=== PATIENT | male | born 1990 | race Caucasian/White ===

== ENCOUNTER 2020-08-18 11:18 | Inpatient (IN) | payer SELFPAY ==
--- NOTE | 2020-08-18 12:33 | PDOC.FPRHP ---
- History of Present Illness Chief Complaint: worsening finger pain History of Present Illness: Mr. Barton is a 30 yo M who is a transfer from [place] and a direct admit for failed outpatient therapy of cellulitis of his right 3rd digit. Has been on Bactrim & Keflex for two days but due to worsening of pain came back. Originally noticed this Sunday. Denies initial wound or trauma. Denies fevers, chills, reports drianage. Reports compliance with meds. Upt ot date on tetanus shot. XR shows no signs of osseous involvement in the ER. Patient endorses pain and limited finger movement. No medical hx. Hasn't happened before. ER: Was given 2 g rocephin, 1 g vanc, morphine, Zofran - Allergies/Adverse Reactions Allergies Allergy/AdvReac Type Severity Reaction Status Date / Time codeine Allergy Hives Verified 08/18/20 12:36 - History PMHx: None PSHx: oral surgery for misaligned teeth FHx:n/c Social: Social drinking, 2 cigs/day for 15 yrs, no drug use. 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 denies: jaundice, itching Musculoskeletal: reports: pain, tenderness, stiffness, swelling, arthritis/arthralgias Psychological: denies: anxiety, depression - Vital signs BP: [144.93] HR: [88] RR: [20] Tmax: [98.1F] Pox: [99%]% on [RA] Wt: 98kg - Physical Exam Constitutional: NAD, awake, alert and oriented, well developed HEENT: normocephalic and atraumatic, PERRLA, EOMI, conjunctiva clear Neck: supple, FROM, trachea midline Heart: RRR, normal S1/S2, no murmurs/rubs/gallops Lungs: CTAB, no respiratory distress, good air movement, no wheezing, no retractions Abdomen: soft, non-tender, bowel sounds present Musculoskeletal: other (right third digit with swelling & erythema most prominent at MCP with extension into doral hand. Purulence from small opening. Difficult to appreciate abscess, limited movement due to pain & swelling) Neurological: no focal deficit, CN II-XII intact, normal sensation Skin: capillary refill <2 seconds Heme/Lymphatic: no purpura, no petechia Psychiatric: normal mood and affect, good judgment and insight, intact recent and remote memory FMR H&P: Results - Labs Result Diagrams: 08/18/20 15:38 FMR H&P: A/P - Plan #Cellulitis of right 3rd digit, failed outpatient therapy -Continue vanc & rocephin, pending blood & wound cultures -Wound care on board -XR with no signs of osseous involvement, sepsis criteria not met. Cannot definitely r/o osteo- CRP 5 and difficult to appreciated abscess with limited finger movement. Will obtain MRI to further assess -Morphine& toradol for pain -Admit to onc/inpt Discussed w/ Dr. Esquivel Lines: Peripheral IV 18G Abx: Vanc & Rocephin Dvt ppx: SCDs GI ppx: Not indicated FMR H&P: Upper Level - Plan Date/Time: 08/18/20 1232 I, [], have evaluated this patient and agree with findings/plan as outlined by campus recruiting internship resident. Pertinent changes/additions are listed here. Addendum - Attending - Attending Attestation Date/Time: 08/18/20 8089 I personally evaluated the patient and discussed the management with Dr. Porter I agree with the History, Examination, Assessment and Plan documented above with any addition or exceptions noted below - 30 yo M with no significant PMH presented as transfer from [facility] as a direct admit for failed outpatient therapy of cellulitis of his right 3rd digit. Patient reports initial redness and swelling of left third finger on Sunday. Was seen in ER on 08/16 and given Rocephin and prescriptions for Bactrim and Keflex. Reports he has been taking the abx as prescribed but has had increased pain and swelling in finger. PMH/PSH/Meds/SH reviewed and agree with resident's documentation. Afebrile VSS. Exam repeated by me and agree with resident's findings. Labs normal except CRP=5.57. A/P: 1) Cellulitis of right 3rd finger failed outpatient treatment- admit to medical and start IV abx. MRI obtained to evaluate for possible osteomyelitis and showed abscess and possible early tenosynovitis versus reactive inflammation. Ortho consulted and will evaluate patient.
[2020-08-18 12:39] VITALS: BMI 27.2
[2020-08-18] MEDS ORDERED: Vancomycin HCl 500 MG in Sodium Chloride 0.9% 100 ML IVPB SCH (13:15)
[2020-08-18] MEDS ORDERED: Morphine 4 MG/ML VIAL SLOW IVP SCH (13:45)
[2020-08-18] MEDS ORDERED: Magnevist 469MG/ML 20 ML VIAL ONE (13:48)
--- NOTE | 2020-08-18 15:00 | MRI ---
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 There is also loculated abscess extending into the interspace surrounding the third digit between the index and ring fingers, best seen on image 15 of series 6. The collection measures approximately 8.4 x 4.0 x 1.3 cm in its greatest length, with an AP dimension. There is a small 8 mm substance abscess overlying the left ring finger metacarpal head (along the dorsal aspect). There is a small am ount of fluid seen within the flexor tendon sheaths of the FDS and FDP tendons of the index and long finger at that is best seen at the level of the MCP joints and extends to the level of the mid c arpal joints. This may be reactive in nature and does not appear to involve the level of the distal wrist. There is no abnormal bone marrow signal intensity to suggest osteomyelitis. No joint effusion is grossly evident to suggest a septic arthritis. IMPRESSION: 1. Right hand and right long finger cellulitis with subcutaneous abscess involving the dorsal aspect of the right long finger extending into the distal aspect of the right hand and with in the index-long finger interspace and the long finger-ring finger interspace. Small subcutaneous abscess a lso overlies the dorsal aspect of the left ring finger MCP joint. 2. Small amount of tenosynovitis involving FDP and FDS tendons of the index and long finger, near the MCP joints. This could be reactive in nature; however, a new infectious tenosynovitis is not excluded. Recommend correlation with the clinical exam.
[2020-08-18 16:05] LABS: Calc. Creatinine Clearance 202 mL/min (70-130); Estimated GFR-MDRD Greater than 90
[2020-08-18] MEDS: Ketorolac Tromethamine 30 MG/ML VIAL IVP SCH (17:07)
[2020-08-18] MEDS: Morphine 4 MG/ML VIAL SLOW IVP PRN ×2 (18:27→22:23)
[2020-08-18] MEDS: Vancomycin 1.5 GRAM/300 ML BAG 1.5 GM in Premix Bag 1 BAG IVPB SCH (19:49)
[2020-08-18] MEDS ORDERED: Vancomycin HCl 1.5 GM in Sodium Chloride 0.9% 250 ML 300 ML IVPB SCH (23:00)
[2020-08-19] MEDS: Ketorolac Tromethamine 30 MG/ML VIAL IVP SCH ×6 (00:22→23:18)
[2020-08-19] MEDS: Morphine 4 MG/ML VIAL SLOW IVP PRN ×2 (03:52→10:42)
[2020-08-19] MEDS: Vancomycin 1.5 GRAM/300 ML BAG 1.5 GM in Premix Bag 1 BAG IVPB SCH ×4 (03:52→21:53)
[2020-08-19 04:03] LABS: #Eosinphils 0.2 thou/uL (0.0-0.7); #Lymphocytes 1.5 thou/uL (1.20-3.40); %Basophils 0.3 % (0.0-1.0); %Eosinophils 1.4 % (0.0-10.0); %Lymphocytes 12.6 % (21.0-51.0); %Monocytes 8.5 % (0.0-10.0); %Neutrophils 77.2 % (42.0-75.0); Hemoglobin 14.8 g/dL (14.0-18.0); Mean Corpuscular Hemoglobin 32.4 pg (27.0-31.0); Mean Corpuscular Volume 95.2 fL (78.0-98.0); Mean Platelet Volume 7.9 fL (7.4-10.4); Platelet Count 191 thou/uL (130-400); Red Blood Cell (RBC) Count 4.56 mill/uL (4.70-6.10); White Blood Cell (WBC) Count 11.7 thou/uL (4.8-10.8)
[2020-08-19 04:21] LABS: Anion Gap 12 mmol/L (10-20); BUN (Urea Nitrogen) 17 mg/dL (8.9-20.6); Calc. Creatinine Clearance 187 mL/min (70-130); Calcium 9.2 mg/dL (7.8-10.44); Carbon Dioxide 25 mmol/L (22-29); Chloride 102 mmol/L (98-107); Estimated GFR-MDRD Greater than 90; Glucose 101 mg/dL (70-105); Sodium 135 mmol/L (136-145)
[2020-08-19] MEDS ORDERED: CEFAZOLIN 2 GM in Premix Bag 1 BAG IVPB SCH (07:15)
--- NOTE | 2020-08-19 07:47 | PDOC.FM ---
- Subjective Subjective: Patient reports persistent hand pain and swelling. Otherwise no acute concerns. denies fevers/chills. - Objective MAR Reviewed: Yes Vital Signs & Weight: Vital Signs (12 hours) Temp Pulse Resp BP BP Pulse Ox 08/19/20 04:00 98.6 F 72 12 135/67 99 08/18/20 19:59 99.1 F 109 H 16 128/60 97 Weight Weight 98.928 kg I&O: 08/18/20 08/19/20 08/20/20 06:59 06:59 06:59 Intake Total 1640 Balance 1640 Result Diagrams: 08/19/20 03:43 08/19/20 03:43 Phys Exam - Physical Examination Constitutional: NAD Respiratory: no wheezing, no rales, no rhonchi Cardiovascular: RRR, no significant murmur, no rub Gastrointestinal: soft, non-tender, no distention, positive bowel sounds R 3rd finger edematour and erythematous to marked edges, TTP ROM decreased 2/2 pain Dx/Plan - Plan Plan: #Cellulitis of right 3rd digit, failed outpatient therapy -Continue vanc & rocephin, pending blood & wound cultures -Wound care on board - MRI shows abscess and concern for tenosynovitis vs reactive inflammation -Morphine & toradol for pain - Ortho consulted, likely OR this PM Lines: Peripheral IV 18G Abx: Vanc & Rocephin Dvt ppx: SCDs GI ppx: Not indicated Addendum - Attending - Attending Attestation Date/Time: 08/19/20 7875 I personally evaluated the patient and discussed the management with Dr. Jordan I agree with the History, Examination, Assessment and Plan documented above with any addition or exceptions noted below - Patient reports that pain still present. Afebrile VSS A/P: 1) Right 3rd finger cellulitis - Appreciate ortho assistance ; plan for I&D today. Continue current abx.
--- NOTE | 2020-08-19 08:48 | CON ---
DATE OF CONSULTATION: This is Guy Alva PA-C dictating a report for Jose Maddox MD. HISTORY OF PRESENT ILLNESS: We were asked by [facility] residents, Barbara Porter MD, to see the patient. The patient was seen this past week for some swelling and redness over the right dorsal aspect of his 3rd digit. He was put on Bactrim and Keflex, but the symptoms progressively got worse. He was then sent to our hospital. The patient works on [employer] and does not remember nicking his finger on anything, but he thought it could be a spider bite of some kind. He has good sensation in that finger, but the dorsal aspect of that finger is fairly macerated with erythema and edema. PAST MEDICAL HISTORY: None. PAST SURGICAL HISTORY: Some oral surgery. FAMILY HISTORY: For this visit, noncontributory. CURRENT MEDICATIONS: Bactrim, Keflex, but he is on IV antibiotics currently. ALLERGIES: CODEINE. SOCIAL HISTORY: He works on [employer]. 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 REVIEW OF SYSTEMS: Healthy other than the right dorsal 3rd digit pain. Rest of review of systems negative. PHYSICAL EXAMINATION: Well-nourished, well-developed male, alert, pleasant, no acute distress. Speech clear. Affect pleasant. Answers questions appropriately. He is alert and oriented x3. Resting in bed in Oncology in room 135, he is there for overflow reasons. Scalp atraumatic. Face symmetric. Tongue midline. Respirations 16. Upper extremities; equal size, shape, symmetry. Normal bulk and tone with the exception of the right 3rd digit, which shows some macerated tissue on the dorsal aspect. He has some erythema and edema, but he has good sensations at the tip and good cap refill. Rest of orthopedic physical exam is normal. ASSESSMENT: Right dorsal 3rd digit abscess. MRI showed no tenosynovitis, but did show a dorsal abscess. Labs; white blood cell count is 11.7. PLAN: The patient is n.p.o. We will get a Rapid COVID on him. This is fairly urgent to get done. I have instructed the nurse if there are any issues getting the Rapid COVID to have the millard that be called Dr. Maddox, so he can explain the medical urgency and necessity to do this surgery. I have booked him in the OR, consent has been done. He is already on antibiotics. I went over the risks and benefits of surgery. His questions and concerns have been addressed and he is amenable to go forth with surgery. Job ID: [id number]
[2020-08-19] MEDS: cefTRIAXone\\ROCEPHIN 2 GM in Sodium Chloride 0.9% 100 ML IVPB SCH (09:04)
[2020-08-19 09:18] LABS: SARS-CoV-2 NAA Rapid Test Not Detected (NotDetected)
[2020-08-19] MEDS: Lactated Ringer's 1,000 ML IV SCH ×2 (10:39→19:21)
[2020-08-19] MEDS ORDERED: PHENYLEPHRINE-NS 100 MCG/ML 10 ML SYRINGE ONE (11:35)
[2020-08-19] MEDS ORDERED: PROPOFOL 200 MG/20 ML VIAL ONE (11:35)
[2020-08-19] MEDS ORDERED: Ondansetron PF 4 MG/2 ML Vial ONE (11:35)
[2020-08-19] MEDS ORDERED: Lidocaine 1% PF 5 ML VIAL ONE (11:35)
[2020-08-19] MEDS ORDERED: Dexamethasone 20 MG/5 ML VIAL ONE (11:35)
[2020-08-19] MEDS ORDERED: Morphine 4 MG/ML VIAL ONE (12:25)
[2020-08-19 12:36] LABS: Vancomycin, Trough 10.9 ug/mL
[2020-08-19] MEDS ORDERED: Fentanyl 100 MCG/2 ML VIAL ONE ×2 (12:44→14:24)
[2020-08-19] MEDS ORDERED: HYDROmorphone 0.5 MG/0.5 ML SYRINGE ONE (12:44)
[2020-08-19] MEDS ORDERED: Midazolam HCl 2 mg/2 ml Vial ONE (12:44)
[2020-08-19] MEDS ORDERED: Promethazine HCl 25 MG/ML VIAL IM PRN (14:15)
[2020-08-19] MEDS ORDERED: Meperidine HCl/PF 25 MG/ML VIAL SLOW IVP PRN (14:15)
[2020-08-19] MEDS ORDERED: Ondansetron HCl/PF 4 MG/2 ML Vial IVP PRN (14:15)
[2020-08-19] MEDS ORDERED: Promethazine HCl 25 MG/ML VIAL SLOW IVP PRN (14:15)
[2020-08-19] MEDS ORDERED: Promethazine HCl 25 MG/ML VIAL ONE (14:24)
[2020-08-19] MEDS ORDERED: Ketorolac Tromethamine 30 MG/ML VIAL ONE (15:04)
[2020-08-19] MEDS: Morphine 2 MG/ML VIAL SLOW IVP PRN ×2 (15:33→20:06)
[2020-08-20] MEDS: Ketorolac Tromethamine 30 MG/ML VIAL IVP SCH ×4 (05:47→23:15)
[2020-08-20] MEDS: Vancomycin 1.5 GRAM/300 ML BAG 1.5 GM in Premix Bag 1 BAG IVPB SCH (05:47)
[2020-08-20] MEDS: Lactated Ringer's 1,000 ML IV SCH ×2 (05:49→12:17)
[2020-08-20] MEDS ORDERED: Polyethylene Glycol 3350 17 GM Packet PO PRN (06:03)
[2020-08-20 06:48] LABS: #Monocytes 0.9 thou/uL (0.11-0.59); #Neutrophils 10.4 thou/uL (1.40-6.50); %Basophils 0.1 % (0.0-1.0); %Eosinophils 0.2 % (0.0-10.0); %Lymphocytes 8.3 % (21.0-51.0); %Monocytes 7.6 % (0.0-10.0); %Neutrophils 83.8 % (42.0-75.0); Mean Corpuscular HGB CONC 33.7 g/dL (32.0-36.0); Mean Corpuscular Hemoglobin 32.4 pg (27.0-31.0); Mean Corpuscular Volume 96.1 fL (78.0-98.0); Platelet Count 191 thou/uL (130-400); RBC Distribution Width 11.5 % (11.5-14.5); Red Blood Cell (RBC) Count 4.01 mill/uL (4.70-6.10); White Blood Cell (WBC) Count 12.4 thou/uL (4.8-10.8)
[2020-08-20 07:04] LABS: Anion Gap 11 mmol/L (10-20); BUN (Urea Nitrogen) 14 mg/dL (8.9-20.6); Calc. Creatinine Clearance 202 mL/min (70-130); Carbon Dioxide 28 mmol/L (22-29); Chloride 103 mmol/L (98-107); Estimated GFR-MDRD Greater than 90; Glucose 132 mg/dL (70-105); Potassium 4.1 mmol/L (3.5-5.1); Sodium 138 mmol/L (136-145)
[2020-08-20] MEDS: Morphine 2 MG/ML VIAL SLOW IVP PRN (08:54)
--- NOTE | 2020-08-20 09:37 | PDOC.FM ---
- Subjective Subjective: Patient feeling well this AM and denies hand pain. No acute concerns. - Objective MAR Reviewed: Yes Vital Signs & Weight: Vital Signs (12 hours) Temp Pulse Resp BP Pulse Ox 08/20/20 07:39 97.9 F 67 14 143/63 H 96 08/20/20 04:00 98.1 F 88 16 141/79 H 98 08/19/20 23:14 98.1 F 72 16 129/64 97 Weight Admit Weight 98.928 kg Weight 98.928 kg I&O: 08/19/20 08/20/20 08/21/20 06:59 06:59 06:59 Intake Total 1640 1080 Balance 1640 1080 Result Diagrams: 08/20/20 06:30 08/20/20 06:30 Phys Exam - Physical Examination Constitutional: NAD No respiratory distress, symmetric chest rise and fall no cyanosis, no edema Gastrointestinal: non-tender, no distention R hand bandaged, able to move all fingers Dx/Plan - Plan Plan: #Cellulitis of right 3rd digit, failed outpatient therapy - Continue vanc & rocephin, pending blood & wound cultures - Wound care on board - MRI shows abscess and concern for tenosynovitis vs reactive inflammation - Morphine & toradol for pain -Miralax and Senna PRN - Post op I&D 08/19 - Ortho recs concsulted Lines: Peripheral IV 18G Abx: Vanc & Rocephin Dvt ppx: SCDs GI ppx: Not indicated Addendum - Attending - Attending Attestation Date/Time: 08/20/20 7342 I personally evaluated the patient and discussed the management with Dr. Jordan I agree with the History, Examination, Assessment and Plan documented above with any addition or exceptions noted below - Patient felling better. Less pain in hand and able to move adjacent fingers more easily. Afebrile VSS. A/P: 1) Cellulitis with abscess Right 3rd finger- s/p I&D- continue current abx; awaiting sensitivities. Wound care as per ortho.
[2020-08-20] MEDS ORDERED: Senokot 8.6 MG TAB PO PRN ×2 (09:41→09:42)
[2020-08-20] MEDS: cefTRIAXone\\ROCEPHIN 2 GM in Sodium Chloride 0.9% 100 ML IVPB SCH (11:21)
[2020-08-20 13:31] LABS: Vancomycin, Trough 12.6 ug/mL
[2020-08-20] MEDS: Vancomycin HCl 1.75 GM in Sodium Chloride 0.9% 500 ML IVPB SCH ×2 (15:41→23:00)
[2020-08-20] MEDS: Morphine 4 MG/ML VIAL SLOW IVP PRN (17:05)
[2020-08-21 04:44] LABS: #Eosinphils 0.2 thou/uL (0.0-0.7); #Lymphocytes 2.1 thou/uL (1.20-3.40); #Monocytes 0.6 thou/uL (0.11-0.59); #Neutrophils 4.2 thou/uL (1.40-6.50); %Basophils 0.3 % (0.0-1.0); %Eosinophils 2.2 % (0.0-10.0); %Monocytes 8.1 % (0.0-10.0); %Neutrophils 59.5 % (42.0-75.0); Hemoglobin 12.4 g/dL (14.0-18.0); Mean Corpuscular HGB CONC 34.3 g/dL (32.0-36.0); Mean Corpuscular Hemoglobin 32.6 pg (27.0-31.0); Mean Corpuscular Volume 95.1 fL (78.0-98.0); Mean Platelet Volume 8.3 fL (7.4-10.4); Platelet Count 177 thou/uL (130-400); RBC Distribution Width 11.7 % (11.5-14.5); Red Blood Cell (RBC) Count 3.81 mill/uL (4.70-6.10)
[2020-08-21 05:15] LABS: Anion Gap 10 mmol/L (10-20); BUN (Urea Nitrogen) 12 mg/dL (8.9-20.6); Calc. Creatinine Clearance 216 mL/min (70-130); Calcium 8.4 mg/dL (7.8-10.44); Carbon Dioxide 28 mmol/L (22-29); Chloride 105 mmol/L (98-107); Estimated GFR-MDRD Greater than 90; Glucose 90 mg/dL (70-105); Sodium 139 mmol/L (136-145)
[2020-08-21] MEDS: Vancomycin HCl 1.75 GM in Sodium Chloride 0.9% 500 ML IVPB SCH (06:17)
[2020-08-21] MEDS: Ketorolac Tromethamine 30 MG/ML VIAL IVP SCH (06:17)
[2020-08-21 07:37] VITALS: BP 134/81; TEMP 98.1
--- NOTE | 2020-08-21 07:48 | PDOC.FM ---
- Subjective Subjective: Patient doing well, minimal pain, ready to go home. - Objective Vital Signs & Weight: Vital Signs (12 hours) Temp Pulse Resp BP Pulse Ox 08/21/20 07:36 98.1 F 77 18 134/81 100 Weight Admit Weight 98.928 kg Weight 98.928 kg I&O: 08/20/20 08/21/20 08/22/20 06:59 06:59 06:59 Intake Total 1080 3900 Balance 1080 3900 Result Diagrams: 08/21/20 04:22 08/21/20 04:22 Phys Exam - Physical Examination Constitutional: NAD Respiratory: no wheezing, no rales, no rhonchi Cardiovascular: RRR, no significant murmur, no rub R hand bandaged and wrapped Dx/Plan - Plan Plan: #Cellulitis of right 3rd digit, failed outpatient therapy - Wound care on board - MRI shows abscess and concern for tenosynovitis vs reactive inflammation - Morphine & toradol for pain -Miralax and Senna PRN - Post op I&D 08/19 - Ortho recs appreciated - Can switch to PO abx-doxycycline or clindamycin given sensitivities and cost with no insurance Lines: Peripheral IV 18G Abx: Vanc & Rocephin Dvt ppx: SCDs GI ppx: Not indicated Dispo: DC likely today pending Ortho recommendations. Addendum - Attending - Attending Attestation Date/Time: 08/21/20 8615 I personally evaluated the patient and discussed the management with Dr. Jordan I agree with the History, Examination, Assessment and Plan documented above with any addition or exceptions noted below - Patient without complaints. Pain much better. Afebrile VSS. A/P: 1) Finger cellulitis and abscess with MRSA - s/p I&D- doing well. plan to d/c home today with po doxycycline for 2 weeks. Follow-up with ortho in 1 week.
[2020-08-21] MEDS: Morphine 4 MG/ML VIAL SLOW IVP PRN (08:04)
[2020-08-21] MEDS: cefTRIAXone\\ROCEPHIN 2 GM in Sodium Chloride 0.9% 100 ML IVPB SCH (09:52)
--- NOTE | 2020-08-21 14:47 | DIS ---
DATE OF ADMISSION: 08/18/2020 DATE OF DISCHARGE: 08/21/2020 RESIDENT: Michael Jordan MD ADMITTING ATTENDING: Dr. Esquivel DISCHARGE ATTENDING: Dr. Esquivel. CONSULT: Orthopedics, Dr. Maddox, on 08/18/2020. PRIMARY DIAGNOSIS: Cellulitis with failed outpatient treatment. SECONDARY DIAGNOSIS: Elevated blood pressures. PROCEDURES: MRI R hand showing abscess and tenosynovitis vs. reactive inflammatory changes. R hand I&D with washout on 08/19. DISCHARGE MEDICATIONS: 1. Ibuprofen 800 mg t.i.d. p.r.n. 2. Doxycycline 100 mg b.i.d. for 11 days p.o. 3. Tramadol 50 mg q.6 hours p.r.n. for 5 days. HISTORY OF PRESENT ILLNESS/HOSPITAL COURSE: The patient is a 30-year-old male who presented to the ER with complaints of right third finger pain and swelling. The patient had previously been on outpatient antibiotics for cellulitis including Bactrim. The patient reports that the pain and swelling increased while taking Bactrim, which brought him to the ER. The patient was placed on IV antibiotics including vancomycin and ceftriaxone. Orthopedics was consulted after MRI of the right hand was obtained. MRI showed right hand and finger cellulitis with subcutaneous abscess in the dorsal aspect of the right long finger with concern for tenosynovitis versus reactive inflammatory processes. The patient was taken to the operating room on 08/19/2020 for I and D of the abscess. The patient tolerated the procedure well. Wound cultures resulted on 08/21 showing sensitivity to doxycycline. The patient will be placed on outpatient antibiotic therapy with doxycycline. DISPOSITION: Stable. DISCHARGE INSTRUCTIONS: 1. Location: Home. 2. Diet: Regular. 3. Activity: As tolerated, rest right hand. 4. Followup: The patient should follow up with orthopedics, Dr. Maddox, in 1 week. The patient should follow up with PCP within 2 weeks. Gave the patient's resources to select PCP as he previously was not seen one. Discussed that the patient can also make a PCP appointment for early next week if dressing changes at home are not tolerated. The patient should be changing the dressing every day. The patient was given supplies to do so. Job ID: [id number] [facility]
--- NOTE | 2020-08-23 19:44 | OP ---
DATE OF PROCEDURE: 08/19/2020 PREOPERATIVE DIAGNOSIS: Right long finger dorsal abscess. POSTOPERATIVE DIAGNOSIS: Right long finger dorsal abscess. PROCEDURE PERFORMED: Incision and drainage of right long finger dorsal abscess. ANESTHESIA: General. TOURNIQUET TIME: Zero. SPECIMENS: Swab sent for Gram stain, culture, and sensitivity. BLOOD LOSS: 10 mL. IMPLANTS: None. COMPLICATIONS: None. DRAINS: Iodoform gauze packing. OUTCOME: Satisfactory. INDICATIONS: Mr. Barton is a 30-year-old gentleman who presents with a right dorsal finger abscess of unknown etiology. After discussion with the patient including risks and benefits, we decided to proceed with drainage of this abscess. The patient has a soft volar surface with no apparent flexor tenosynovitis. MRI has been obtained that shows a dorsal soft tissue abscess. DESCRIPTION OF PROCEDURE: The patient was brought to the operating room and a time-out performed, followed by induction of general anesthesia. Next, a sterile prep and drape was performed of the right upper extremity. Next, an oblique incision was made centered over the dorsal aspect of the proximal phalanx. After skin was sharply incised, white purulent material was found to come out from this subcutaneous abscess. Blunt dissection was then used to break down septa and fully decompress this abscess cavity, which extended from the mid sagittal plane both medially and laterally on this digit and extended over the dorsal aspect of the metacarpophalangeal joint without entering the joint itself. Once fully decompressed, a curette was used to remove some further dysvascular tissue and then bulb syringe was used to irrigate 2 L of normal saline with antibiotic irrigant through the wound. It should be noted that a swab was sent for Gram stain, culture, and sensitivity upon opening of the abscess. At the completion of the irrigation, the wound was packed with iodoform gauze and a bulky soft dressing. The patient was then transferred to recovery room in stable condition. There were no complications. He tolerated the procedure well. Job ID: [id number]
== END 2020-08-21 10:40 | disposition home or self-care (01) | DRG 580 ==
LOC: ONC 12:30
PROVIDERS: ADMIT Family Medicine; ATTEND Family Medicine
PROC: 0J9J0ZZ Drainage of Right Hand Subcutaneous Tissue and Fascia, Open Approach (ICD-10-PCS; principal; 2020-08-19)
DX: L03.113 Cellulitis of right upper limb (principal); L02.511 Cutaneous abscess of right hand; Z88.6 Allergy status to analgesic agent; Z88.1 Allergy status to other antibiotic agents; Z88.8 Allergy status to other drugs, medicaments and biological substances
CPT/HCPCS: 36415; 80048; 80202; 85025; 87070; 87077; 87186; 87205; A9579; J0696; J1100; J1170; J1885; J2250; J2270; J2405; J2550; J2704; J3010; J3370; J3490; J7030; U0002